=== PATIENT | male | born 1970 | race Caucasian/White ===

== ENCOUNTER 2017-08-12 10:21 | Emergency (ER) | payer BC ==
[~2017-08-12] VITALS: Ht 180.3 cm; Wt 103.0 kg
[~2017-08-12 10:21] MED LIST: AMOXICILLIN/CL875 MG PO; BACTRIM DS1 TAB PO; CIPRODEX1 ML AU; CIPROFLOXACN500 MG PO; FLEXERIL PO; METRONIDAZOL500 MG PO; NAPROSYN500 MG PO; NO MEDS; NYSTATIN100000 M1 PO; PRILOSEC40 MG PO; ZOFRAN4 MG/TAB PO; [UNRECOGNIZED DRUG - CODE] TOP
[2017-08-12 11:21] LABS: HEMATOCRIT 44.4 % (39.0-50.0); HEMOGLOBIN 14.9 g/dl (14.0-18.0); IMMATURE GRANULOCYTES 0.3 % (0.0-1.0); MEAN CELL VOLUME 87.2 fL CALC (80.0-100.0); MEAN CORPUSCULAR HGB 29.3 pG CALC (26.0-32.0); MEAN CORPUSCULAR HGB CONC 33.6 g/L CALC (32.0-36.0); NEUT# 3.42 thou/uL (1.82-7.42); RED BLOOD COUNT 5.09 mill/uL (4.70-6.10); RED CELL DISTRI WIDTH 12.9 % (11.5-15.5)
[2017-08-12 11:34] LABS: ALBUMIN 4.9 g/dL (3.2-5.0); ALKALINE PHOSPHATASE 68 u/l (38-126); ANION GAP 17 (6-22 (CALC)); BILIRUBIN, TOTAL 0.7 mg/dL (0.0-1.4); BUN 10 mg/dL (9-20); BUN/CREATININE RATIO 10 (12-20 (CALC)); CALCIUM 9.9 mg/dL (8.4-10.2); CARBON DIOXIDE 27 mmol/l (22-30); CHLORIDE 105 mmol/l (95-108); GFR > 60 ML/MIN (>=60 (CALC)); GFR FOR AFR.AMER. > 60 ML/MIN (>=60 (CALC)); GLUCOSE 129 mg/dL (75-110); POTASSIUM 4.5 mmol/l (3.5-5.1); SGOT/AST 37 u/l (17-59); SGPT/ALT 65 u/l (21-72); SODIUM 144 mmol/l (137-146)
[2017-08-12 11:47] LABS: MYOGLOBIN 44 ng/mL (0 - 121)
[2017-08-12 11:56] LABS: URINE BILIRUBIN - DIPSTICK NEGATIVE (NEGATIVE); URINE BLOOD DIPSTICK NEGATIVE (NEGATIVE); URINE COLOR YELLOW; URINE GLUCOSE - DIPSTICK NEGATIVE (NEGATIVE); URINE KETONE NEGATIVE (NEGATIVE); URINE LEUK ESTERASE NEGATIVE (NEGATIVE); URINE NITRITE - DIPSTICK NEGATIVE (Negative); URINE PH 6.5 (4.5-8.0); URINE PROTEIN - DIPSTICK NEGATIVE (NEG-TRACE); URINE UROBILINOGEN - DIPSTICK 0.2 E.U./dL (0.2)
[2017-08-12 12:02] LABS: BARBITURATES NEGATIVE (NEGATIVE); COCAINE NEGATIVE (NEGATIVE); METHADONE NEGATIVE (NEGATIVE); OXCYCODONE NEGATIVE (NEGATIVE); TETRAHYDROCANNABIONOL NEGATIVE (NEGATIVE); TRICYLIC ANTIDEPRESSANTS NEGATIVE (NEGATIVE)
[2017-08-12 12:05] LABS: URINE CLARITY CLEAR
[2017-08-12] MEDS ORDERED: ANTIVERT PO (12:23)
[2017-08-12 13:30] VITALS: BP 128/81
== END 2017-08-12 13:45 | disposition home or self-care (01) | DRG 149 ==
LOC: ED 10:21
PROVIDERS: Emergency Medicine
DX: R42 Dizziness and giddiness (principal); I10 Essential (primary) hypertension; R53.1 Weakness

== ENCOUNTER 2018-03-27 09:31 | Emergency (ER) | payer BC ==
[~2018-03-27] VITALS: Ht 180.3 cm; Wt 108.2 kg
[~2018-03-27 09:31] MED LIST changes: +ANTIVERT PO
[2018-03-27 11:04] LABS: HEMATOCRIT 44.1 % (39.0-50.0); HEMOGLOBIN 14.8 g/dl (14.0-18.0); IMMATURE GRANULOCYTES 0.3 % (0.0-1.0); MEAN CELL VOLUME 86.8 fL CALC (80.0-100.0); MEAN CORPUSCULAR HGB 29.1 pG CALC (26.0-32.0); MEAN CORPUSCULAR HGB CONC 33.6 g/L CALC (32.0-36.0); NEUT# 4.33 thou/uL (1.82-7.42); RED BLOOD COUNT 5.08 mill/uL (4.70-6.10); RED CELL DISTRI WIDTH 12.9 % (11.5-15.5)
[2018-03-27 11:05] LABS: URINE BILIRUBIN - DIPSTICK NEGATIVE (NEGATIVE); URINE BLOOD DIPSTICK NEGATIVE (NEGATIVE); URINE COLOR YELLOW; URINE GLUCOSE - DIPSTICK NEGATIVE (NEGATIVE); URINE KETONE NEGATIVE (NEGATIVE); URINE LEUK ESTERASE NEGATIVE (NEGATIVE); URINE NITRITE - DIPSTICK NEGATIVE (Negative); URINE PH 7.5 (4.5-8.0); URINE PROTEIN - DIPSTICK NEGATIVE (NEG-TRACE); URINE UROBILINOGEN - DIPSTICK 0.2 E.U./dL (0.2)
[2018-03-27 11:07] LABS: URINE CLARITY CLEAR
[2018-03-27 11:20] LABS: ALBUMIN 4.6 g/dL (3.2-5.0); ALKALINE PHOSPHATASE 77 u/l (38-126); ANION GAP 13 (6-22 (CALC)); BILIRUBIN, TOTAL 0.4 mg/dL (0.0-1.4); BUN 12 mg/dL (9-20); BUN/CREATININE RATIO 15 (12-20 (CALC)); CARBON DIOXIDE 27 mmol/l (22-30); CHLORIDE 106 mmol/l (95-108); CREATININE 0.8 mg/dL (0.7-1.3); GFR > 60 ML/MIN (>=60 (CALC)); GFR FOR AFR.AMER. > 60 ML/MIN (>=60 (CALC)); POTASSIUM 4.2 mmol/l (3.5-5.1); SGOT/AST 44 u/l (17-59); SGPT/ALT 74 u/l (21-72); SODIUM 141 mmol/l (137-146); TOTAL PROTEIN 8.2 g/dL (6.3-8.2)
[2018-03-27 11:30] LABS: MYOGLOBIN 37 ng/mL (0 - 121)
[2018-03-27] MEDS ORDERED: WELLBUTRIN100 M2 PO (12:11)
[2018-03-27 12:13] VITALS: BP 129/84
== END 2018-03-27 12:22 | disposition home or self-care (01) | DRG 880 ==
LOC: ED 09:31
PROVIDERS: Emergency Medicine
DX: F41.9 Anxiety disorder, unspecified (principal); F17.290 Nicotine dependence, other tobacco product, uncomplicated

== ENCOUNTER 2018-08-27 19:32 | Emergency (ER) | payer BC ==
[~2018-08-27] VITALS: Ht 180.3 cm; Wt 106.0 kg
[~2018-08-27 19:32] MED LIST changes: +WELLBUTRIN100 M2 PO
[2018-08-27 20:01] VITALS: BP 195/118
[2018-08-27 20:18] LABS: HEMATOCRIT 45.2 % (39.0-50.0); HEMOGLOBIN 15.3 g/dl (14.0-18.0); IMMATURE GRANULOCYTES 0.1 % (0.0-5.0); MEAN CELL VOLUME 86.9 fL CALC (80.0-100.0); MEAN CORPUSCULAR HGB 29.4 pG CALC (26.0-32.0); MEAN CORPUSCULAR HGB CONC 33.8 g/L CALC (32.0-36.0); NEUT# 4.09 thou/uL (1.82-7.42); RED BLOOD COUNT 5.2 mill/uL (4.70-6.10); RED CELL DISTRI WIDTH 12.6 % (11.5-15.5)
[2018-08-27 20:36] LABS: ALBUMIN 4.4 g/dL (3.2-5.0); ALKALINE PHOSPHATASE 108 u/l (38-126); AMYLASE 44 u/l (30-110); ANION GAP 12 (6-22 (CALC)); BILIRUBIN, TOTAL 0.5 mg/dL (0.0-1.4); BUN 12 mg/dL (9-20); BUN/CREATININE RATIO 16 (12-20 (CALC)); CARBON DIOXIDE 25 mmol/l (22-30); CHLORIDE 107 mmol/l (95-108); CREATININE 0.8 mg/dL (0.7-1.3); GFR > 60 ML/MIN (>=60 (CALC)); GFR FOR AFR.AMER. > 60 ML/MIN (>=60 (CALC)); LIPASE 97 u/l (23-300); POTASSIUM 4.4 mmol/l (3.5-5.1); SGOT/AST 72 u/l (17-59); SODIUM 139 mmol/l (137-146); TOTAL PROTEIN 7.7 g/dL (6.3-8.2)
[2018-08-27 21:27] LABS: URINE BILIRUBIN - DIPSTICK NEGATIVE (NEGATIVE); URINE BLOOD DIPSTICK NEGATIVE (NEGATIVE); URINE CLARITY CLEAR; URINE COLOR YELLOW; URINE GLUCOSE - DIPSTICK >=1000 mg/dL (NEGATIVE); URINE KETONE TRACE mg/dL (NEGATIVE); URINE LEUK ESTERASE NEGATIVE (NEGATIVE); URINE NITRITE - DIPSTICK NEGATIVE (Negative); URINE PROTEIN - DIPSTICK NEGATIVE (NEG-TRACE); URINE UROBILINOGEN - DIPSTICK 0.2 E.U./dL (0.2)
[2018-08-27] MEDS ORDERED: MAGNESIUM296 ML/BTL PO (21:38)
[2018-08-27] MEDS ORDERED: METFORMIN HCL1000 M1 PO (21:38)
[2018-08-27] MEDS ORDERED: TRAMADOL HCL50 MG PO (21:38)
== END 2018-08-27 21:57 | disposition home or self-care (01) | DRG 392 ==
LOC: ED 19:32
PROVIDERS: Family Medicine
DX: R10.33 Periumbilical pain (principal); E11.9 Type 2 diabetes mellitus without complications; F17.290 Nicotine dependence, other tobacco product, uncomplicated

== ENCOUNTER 2018-10-30 19:18 | Emergency (ER) | payer BC ==
[~2018-10-30] VITALS: Ht 180.3 cm; Wt 106.6 kg
[~2018-10-30 19:18] MED LIST changes: +MAGNESIUM296 ML/BTL PO; +METFORMIN HCL1000 M1 PO; +TRAMADOL HCL50 MG PO
[2018-10-30 20:00] LABS: HEMATOCRIT 43.4 % (39.0-50.0); IMMATURE GRANULOCYTES 0.1 % (0.0-5.0); MEAN CELL VOLUME 86.1 fL CALC (80.0-100.0); MEAN CORPUSCULAR HGB 29.8 pG CALC (26.0-32.0); MEAN CORPUSCULAR HGB CONC 34.6 g/L CALC (32.0-36.0); NEUT# 3.71 thou/uL (1.82-7.42); RED BLOOD COUNT 5.04 mill/uL (4.70-6.10); RED CELL DISTRI WIDTH 12.5 % (11.5-15.5)
[2018-10-30 20:22] LABS: ALBUMIN 4.8 g/dL (3.2-5.0); ALKALINE PHOSPHATASE 94 u/l (38-126); ANION GAP 17 (6-22 (CALC)); BILIRUBIN, TOTAL 0.5 mg/dL (0.0-1.4); BUN 16 mg/dL (9-20); BUN/CREATININE RATIO 18 (12-20 (CALC)); CARBON DIOXIDE 24 mmol/l (22-30); CHLORIDE 104 mmol/l (95-108); CREATININE 0.9 mg/dL (0.7-1.3); GFR > 60 ML/MIN (>=60 (CALC)); GFR FOR AFR.AMER. > 60 ML/MIN (>=60 (CALC)); POTASSIUM 3.9 mmol/l (3.5-5.1); SGOT/AST 59 u/l (17-59); SODIUM 141 mmol/l (137-146); TOTAL PROTEIN 7.8 g/dL (6.3-8.2)
[2018-10-30] MEDS ORDERED: SIMVASTATIN5 MG PO (20:35)
[2018-10-30] MEDS ORDERED: LISINOPRIL2.5 MG PO (20:36)
[2018-10-30 20:59] VITALS: BP 167/105
== END 2018-10-30 21:10 | disposition home or self-care (01) | DRG 305 ==
LOC: ED 19:18
DX: I10 Essential (primary) hypertension (principal); T50.905A Adverse effect of unspecified drugs, medicaments and biological substances, initial encounter; E11.9 Type 2 diabetes mellitus without complications; E78.00 Pure hypercholesterolemia, unspecified; F17.200 Nicotine dependence, unspecified, uncomplicated

== ENCOUNTER → 2018-11-19 | Outpatient (REF) ==
[~2018-11-19] MED LIST changes: +ASPIRIN81 MG PO; +LISINOPRIL2.5 MG PO; +SIMVASTATIN5 MG PO
== END | disposition home or self-care (01) | DRG 392 ==
LOC: LAB 10:22
PROVIDERS: ATTEND Internal Medicine Gastroenterology
DX: R10.12 Left upper quadrant pain (principal); K21.9 Gastro-esophageal reflux disease without esophagitis; K59.00 Constipation, unspecified

== ENCOUNTER → 2018-11-26 | Outpatient (REF) | payer BC ==
[~2018-11-26] VITALS: Ht 180.3 cm; Wt 102.5 kg
[2018-11-26 10:33] VITALS: BP 112/76
== END | disposition home or self-care (01) | DRG 951 ==
LOC: PO 10:16 → ORM 10:30
PROVIDERS: ATTEND Internal Medicine Gastroenterology
DX: Z01.818 Encounter for other preprocedural examination (principal); R10.32 Left lower quadrant pain; K59.00 Constipation, unspecified; K21.9 Gastro-esophageal reflux disease without esophagitis; I10 Essential (primary) hypertension; E11.9 Type 2 diabetes mellitus without complications; G47.30 Sleep apnea, unspecified; Z98.890 Other specified postprocedural states

== ENCOUNTER 2018-11-27 08:40 | Day surgery (SDC) | payer BC ==
[~2018-11-27] VITALS: Ht 180.3 cm; Wt 102.5 kg
[2018-11-27 11:56] VITALS: BP 124/89
== END 2018-11-27 12:10 | disposition home or self-care (01) | DRG 392 ==
LOC: ENDO 08:40 → ORM 14:00 → ENDO 17:15 → ORM 17:15
PROVIDERS: ATTEND Internal Medicine Gastroenterology
PROC: 0DBN8ZX Excision of Sigmoid Colon, Via Natural or Artificial Opening Endoscopic, Diagnostic (ICD-10-PCS; principal; 2018-11-27)
PROC: 0DB48ZX Excision of Esophagogastric Junction, Via Natural or Artificial Opening Endoscopic, Diagnostic (ICD-10-PCS; 2018-11-27)
DX: K59.00 Constipation, unspecified (principal); K63.5 Polyp of colon; K64.4 Residual hemorrhoidal skin tags; K21.0 Gastro-esophageal reflux disease with esophagitis; K22.70 Barrett's esophagus without dysplasia; K29.70 Gastritis, unspecified, without bleeding; K22.2 Esophageal obstruction; Q40.8 Other specified congenital malformations of upper alimentary tract; K44.9 Diaphragmatic hernia without obstruction or gangrene; I10 Essential (primary) hypertension; E11.9 Type 2 diabetes mellitus without complications; G47.30 Sleep apnea, unspecified; Z79.899 Other long term (current) drug therapy

== ENCOUNTER 2018-12-16 16:00 | Outpatient (RCR) | payer BC | END 2018-12-16 17:00 | disposition home or self-care (01) | DRG 552 | LOC: PT 16:00 | PROVIDERS: ATTEND Physician Assistant Medical | DX: M54.5 Low back pain (principal) ==

== ENCOUNTER 2020-04-01 00:58 | Emergency (ER) | payer BC ==
[~2020-04-01] VITALS: Ht 180.3 cm; Wt 106.0 kg
[2020-04-01 05:15] VITALS: BP 121/73
--- NOTE | 2020-04-04 10:56 | NUR ---
Notified patient of +Covid results. Patient denies fever or dyspnea. Advised patient to quarantine until contacted by [facility] with further instructions. Advised patient to drink plenty of fluids and to rest. Advised patient to return to ED with difficulty breathing or other urgent needs. Patient verbalized understanding.
== END 2020-04-01 05:28 | disposition home or self-care (01) | DRG 179 ==
LOC: ED 00:58
DX: U07.1 COVID-19 (principal); J11.1 Influenza due to unidentified influenza virus with other respiratory manifestations; E11.9 Type 2 diabetes mellitus without complications; I10 Essential (primary) hypertension; Z79.84 Long term (current) use of oral hypoglycemic drugs

== ENCOUNTER 2020-10-04 06:50 | Observation (INO) | payer BC ==
[~2020-10-04] VITALS: Ht 180.3 cm; Wt 104.0 kg
--- NOTE | 2020-10-04 06:52 | NUR ---
PATIENT AMBULATED TO ROOM REFUSING A WHEELCHAIR AND PHYSICIAN NOTIFIED OF PATIENT STATUS
[2020-10-04 07:26] LABS: HEMATOCRIT 46.9 % (39.0-50.0); HEMOGLOBIN 15.1 g/dl (14.0-18.0); IMMATURE GRANULOCYTES 0.2 % (0.0-5.0); MEAN CELL VOLUME 88.7 fL CALC (80.0-100.0); MEAN CORPUSCULAR HGB 28.5 pG CALC (26.0-32.0); MEAN CORPUSCULAR HGB CONC 32.2 g/dL CAL (32.0-36.0); NEUT# 2.97 thou/uL (1.82-7.42); RED BLOOD COUNT 5.29 mill/uL (4.70-6.10); RED CELL DISTRI WIDTH 12.9 % (11.5-15.5)
[2020-10-04 07:32] LABS: ANION GAP 14 (6-22 (CALC)); BUN 14 mg/dL (9-20); BUN/CREATININE RATIO 15 (12-20 (CALC)); CARBON DIOXIDE 25 mmol/l (22-30); CHLORIDE 105 mmol/l (95-108); CREATININE 0.9 mg/dL (0.7-1.3); GFR > 60 ML/MIN (>=60 (CALC)); GFR FOR AFR.AMER. > 60 ML/MIN (>=60 (CALC)); POTASSIUM 4.2 mmol/l (3.5-5.1); SODIUM 140 mmol/l (137-146)
--- NOTE | 2020-10-04 08:03 | NUR ---
PT RESTING COMFORTABLY IN BED. STABLE ON MONITOR. CALL LIGHT WITHIN REACH. NO NEEDS OR CONCERNS AT THIS TIME.
--- NOTE | 2020-10-04 09:11 | NUR ---
AT BEDSIDE. NO DISTRESS NOTED OR PAIN VOICED BY PT. WILL CONTINUE TO MONITOR.
[2020-10-04] MEDS ORDERED: LIPITOR20 M1 PO (09:19)
[2020-10-04] MEDS ORDERED: LEVOCETIRIZINE D5 MG PO (09:20)
[2020-10-04] MEDS ORDERED: LOSARTAN POTASS25 MG PO (09:20)
--- NOTE | 2020-10-04 09:40 | NUR ---
PT UP, AMBULATING TO BATHROOM WITHOUT DIFFICULTY.
--- NOTE | 2020-10-04 09:43 | NUR ---
REPORT GIVEN TO LUX OLIVARES. PT ADMITTED TO M/S [id number].
--- NOTE | 2020-10-04 09:55 | NUR ---
PT ARRIVED VIA WC WITH STAFF. TELE MONITOR AND IV SITE IN PLACE.
[2020-10-04 10:10] VITALS: BP 120/86
--- NOTE | 2020-10-04 10:45 | NUR ---
PT ASSESSMENT IS COMPLETED: IV SITE IS FREE FROM REDNESS OR EDEMA, HR IS REG,PULSES ARE STRONG X4, ABD IS SOFT WITH ACTIVE BS. BREATH SOUNDS ARE CLEAR, BILATERALLY, PT HAS SLEEP APNEA. INQUIRED IF HIS SPOUSE WOULD BRING THE MACHINE. HE WILL ASK. TELE MONITOR IN PLACE. CONTINUE TO OBSERVE AND MONITOR.
[2020-10-04 15:56] VITALS: BP 113/67
--- NOTE | 2020-10-04 16:00 | NUR ---
PT HAS BEEN RELAXING IN BED WITH NO DISTRESS NOTED. IV SITE AND TELE MONITOR IN PLACE. FAMILY SENT THE PHONE WITH [employer]
[2020-10-04 19:00] VITALS: BP 94/65
--- NOTE | 2020-10-04 20:01 | NUR ---
PHYSICAL ASSESMENT COMPLETE. PT CURRENTLY DENIES PAIN OR DISCOMFORT. SCHEDULED MEDICATIONS AND PRN MEDICATION ADMINISTERED, SEE E-MAR. PT DENIES ANY NEEDS AT THIS TIME. PLAN OF CARE REVIEWED, PT DENIES QUESTIONS, VERBALIZES UNDERSTANDING. ITEMS WITHIN REACH, BED LOCKED IN LOW POSITION W/ BEDRAILS UP X2. CALL BHAT WITHIN REACH, AGREES TO CALL PRN.
[2020-10-05] VITALS: BP 97/70
--- NOTE | 2020-10-05 00:03 | NUR ---
PT LAYING IN BED WITH EYES CLOSED, APPEARS TO BE SLEEPING, APPEARS COMFORTABLE AND IN NO DISTRESS. RESPIRATIONS REGULAR AND UNLABORED. ITEMS REMAIN WITHIN REACH, CALL BHAT REMAINS WITHIN REACH. BED REMAINS LOCKED AND IN LOW POSITION WITH BEDRAILS UP X2. WILL CONTINUE TO MONITOR.
--- NOTE | 2020-10-05 01:25 | NUR ---
PT RECEIVED FROM ED TO ROOM 283. ARRIVES VIA STRETCHER ACCOMPANIED BY JASMIN PANTOJA. PT AMBULATORY TO BED. GAIT STEADY AND BALANCED. PT DENIES PAIN AT THIS TIME. ORIENTED TO UNIT, ROOM, CALL BHAT, LIGHTS, TV. ICE WATER PROVIDED. CALL BHAT WITHIN REACH. WILL CALL PRN.
--- NOTE | 2020-10-05 03:59 | NUR ---
PT RESTING IN BED, NO SIGNS OF DISTRESS NOTED, RESP EVEN AND UNLABORED. PT VOICES NO NEEDS OR COMPLAINTS AT THIS TIME. CALL LIGHT IN REACH, CONTINUE TO MONITOR.
[2020-10-05 04:00] VITALS: BP 104/67
[2020-10-05 05:44] LABS: HEMATOCRIT 46.4 % (39.0-50.0); IMMATURE GRANULOCYTES 0.1 % (0.0-5.0); MEAN CELL VOLUME 89.1 fL CALC (80.0-100.0); MEAN CORPUSCULAR HGB 28.8 pG CALC (26.0-32.0); MEAN CORPUSCULAR HGB CONC 32.3 g/dL CAL (32.0-36.0); NEUT# 3.39 thou/uL (1.82-7.42); RED BLOOD COUNT 5.21 mill/uL (4.70-6.10)
[2020-10-05 06:01] LABS: ALBUMIN 4.2 g/dL (3.2-5.0); ALKALINE PHOSPHATASE 85 u/l (38-126); ANION GAP 13 (6-22 (CALC)); BILIRUBIN, TOTAL 0.5 mg/dL (0.0-1.4); BUN 16 mg/dL (9-20); BUN/CREATININE RATIO 17 (12-20 (CALC)); CALCULATED LDLCHOLESTEROL 61 mg/dL (62-129 (CALC)); CARBON DIOXIDE 24 mmol/l (22-30); CHLORIDE 107 mmol/l (95-108); CHOLESTEROL HDL RATIO 4.9 (<4.4 (CALC)); GFR > 60 ML/MIN (>=60 (CALC)); GFR FOR AFR.AMER. > 60 ML/MIN (>=60 (CALC)); HDL CHOLESTEROL 32 mg/dL (>=40); POTASSIUM 4.3 mmol/l (3.5-5.1); SGOT/AST 40 u/l (17-59); SODIUM 139 mmol/l (137-146); TOTAL CHOLESTEROL 156 mg/dl (0-199); TOTAL PROTEIN 7.1 g/dL (6.3-8.2); TOTAL TRIGLYCERIDES 315 mg/dl (30-149); VLDL CHOLESTROL 63 mg/dl (8-62 (CALC))
[2020-10-05 07:28] VITALS: BP 104/70
--- NOTE | 2020-10-05 07:28 | NUR ---
PT RESTING IN BED, NO SIGNS OF DISTRESS NOTED, RESP EVEN AND UNLABORED. PT ALERT AND ORIENTED X3, DENIES ANY PAIN AT THIS TIME. ASSESSMENT COMPLETED, MEDICATED PER MAR. CALL LIGHT IN REACH,CONTINU TO MONITOR.
[2020-10-05 07:33] VITALS: BP 104/70
--- NOTE | 2020-10-05 09:55 | NUR ---
PT SHOWERED, RAZOR AND SHAVING CREAM PROVIDED, PT VOICES NO NEEDS OR COMPLAINTS AT THIS TIME, CALL LIGHT IN REACH,CONTINUE TO MONITOR.
--- NOTE | 2020-10-05 11:10 | NUR ---
DISCUSSED DISCHARGE INSTRUCTIONS, IV REMOVED, CATH INTACT. PT GETTING DRESSED AWAITING HIS .CALL LIGHT IN REACH,CONTINUE TO MONITOR.
--- NOTE | 2020-10-05 11:41 | NUR ---
Discharge instructions given. Patient verbalizes understanding of same. Discharged in stable condition via Ambulatory to Home with family. All belongings sent with pt.
== END 2020-10-05 11:40 | disposition home or self-care (01) | DRG 313 ==
LOC: ED 06:50 → ED-I 07:16 → ED 07:16 → ED-I 08:00 → ED 08:13 → MS2 08:14
PROVIDERS: Family Medicine; Nurse Practitioner; ADMIT Internal Medicine; ATTEND Internal Medicine
DX: R07.89 Other chest pain (principal); E11.9 Type 2 diabetes mellitus without complications; I10 Essential (primary) hypertension; E78.5 Hyperlipidemia, unspecified; E66.3 Overweight; F17.200 Nicotine dependence, unspecified, uncomplicated; Z68.31 Body mass index [BMI] 31.0-31.9, adult; Z79.84 Long term (current) use of oral hypoglycemic drugs; Z82.49 Family history of ischemic heart disease and other diseases of the circulatory system; Z20.828 Contact with and (suspected) exposure to other viral communicable diseases
CPT/HCPCS: G0378; J1650

== ENCOUNTER 2020-11-13 04:37 | Emergency (ER) | payer BC ==
[~2020-11-13] VITALS: Ht 180.3 cm; Wt 104.0 kg
[~2020-11-13 04:37] MED LIST changes: +LEVOCETIRIZINE D5 MG PO; +LIPITOR20 M1 PO; +LOSARTAN POTASS25 MG PO
[2020-11-13 05:22] LABS: URINE BILIRUBIN - DIPSTICK NEGATIVE (NEGATIVE); URINE BLOOD DIPSTICK TRACE-LYSED (NEGATIVE); URINE COLOR YELLOW; URINE GLUCOSE - DIPSTICK 250 mg/dL (NEGATIVE); URINE KETONE NEGATIVE (NEGATIVE); URINE LEUK ESTERASE NEGATIVE (NEGATIVE); URINE NITRITE - DIPSTICK NEGATIVE (Negative); URINE PH 5.5 (4.5-8.0); URINE PROTEIN - DIPSTICK NEGATIVE (NEG-TRACE); URINE SPECIFIC GRAVITY >=1.030; URINE UROBILINOGEN - DIPSTICK 0.2 E.U./dL (0.2)
[2020-11-13 05:29] LABS: HEMATOCRIT 47.9 % (39.0-50.0); HEMOGLOBIN 15.4 g/dl (14.0-18.0); IMMATURE GRANULOCYTES 0.1 % (0.0-5.0); MEAN CELL VOLUME 88.2 fL CALC (80.0-100.0); MEAN CORPUSCULAR HGB 28.4 pG CALC (26.0-32.0); MEAN CORPUSCULAR HGB CONC 32.2 g/dL CAL (32.0-36.0); NEUT# 3.61 thou/uL (1.82-7.42); RED BLOOD COUNT 5.43 mill/uL (4.70-6.10)
[2020-11-13 05:37] LABS: ALBUMIN 4.6 g/dL (3.2-5.0); ALKALINE PHOSPHATASE 85 u/l (38-126); ANION GAP 13 (6-22 (CALC)); BILIRUBIN, TOTAL 0.6 mg/dL (0.0-1.4); BUN 17 mg/dL (9-20); BUN/CREATININE RATIO 19 (12-20 (CALC)); CARBON DIOXIDE 26 mmol/l (22-30); CHLORIDE 103 mmol/l (95-108); CREATININE 0.9 mg/dL (0.7-1.3); GFR > 60 ML/MIN (>=60 (CALC)); GFR FOR AFR.AMER. > 60 ML/MIN (>=60 (CALC)); LIPASE 188 u/l (23-300); POTASSIUM 4.2 mmol/l (3.5-5.1); SGOT/AST 39 u/l (17-59); SODIUM 138 mmol/l (137-146); TOTAL PROTEIN 7.8 g/dL (6.3-8.2)
[2020-11-13] MEDS ORDERED: METFORMIN HCL500 M2 PO (06:01)
[2020-11-13] MEDS ORDERED: TRAMADOL HYDROC50 M1 PR (08:19)
[2020-11-13 09:20] VITALS: BP 114/78
== END 2020-11-13 09:20 | disposition home or self-care (01) | DRG 392 ==
LOC: ED 04:37
PROVIDERS: Emergency Medicine
DX: R10.11 Right upper quadrant pain (principal); E11.9 Type 2 diabetes mellitus without complications; I10 Essential (primary) hypertension; E78.00 Pure hypercholesterolemia, unspecified; F17.200 Nicotine dependence, unspecified, uncomplicated; Z86.16 Personal history of COVID-19; Z79.84 Long term (current) use of oral hypoglycemic drugs; Z20.822 Contact with and (suspected) exposure to COVID-19
CPT/HCPCS: Q9967; S0164

== ENCOUNTER 2021-04-01 11:32 | Emergency (ER) | payer BC ==
[~2021-04-01] VITALS: Ht 180.3 cm; Wt 106.8 kg
[~2021-04-01 11:32] MED LIST changes: +METFORMIN HCL500 M2 PO; +TRAMADOL HYDROC50 M1 PR
[2021-04-01 12:41] LABS: HEMATOCRIT 47.6 % (39.0-50.0); HEMOGLOBIN 15.7 g/dl (14.0-18.0); IMMATURE GRANULOCYTES 0.1 % (0.0-5.0); MEAN CELL VOLUME 86.2 fL CALC (80.0-100.0); MEAN CORPUSCULAR HGB 28.4 pG CALC (26.0-32.0); NEUT# 5.37 thou/uL (1.82-7.42); RED BLOOD COUNT 5.52 mill/uL (4.70-6.10)
[2021-04-01 12:54] LABS: ALBUMIN 4.5 g/dL (3.2-5.0); ALKALINE PHOSPHATASE 88 u/l (38-126); ANION GAP 15 (6-22 (CALC)); BILIRUBIN, TOTAL 0.6 mg/dL (0.0-1.4); BUN 13 mg/dL (9-20); BUN/CREATININE RATIO 18 (12-20 (CALC)); CARBON DIOXIDE 24 mmol/l (22-30); CHLORIDE 104 mmol/l (95-108); CREATININE 0.7 mg/dL (0.7-1.3); GFR > 60 ML/MIN (>=60 (CALC)); GFR FOR AFR.AMER. > 60 ML/MIN (>=60 (CALC)); LIPASE 145 u/l (23-300); POTASSIUM 3.9 mmol/l (3.5-5.1); SGOT/AST 49 u/l (17-59); SODIUM 140 mmol/l (137-146); TOTAL PROTEIN 8.5 g/dL (6.3-8.2)
[2021-04-01 13:11] LABS: URINE BILIRUBIN - DIPSTICK NEGATIVE (NEGATIVE); URINE BLOOD DIPSTICK NEGATIVE (NEGATIVE); URINE COLOR YELLOW; URINE GLUCOSE - DIPSTICK >=1000 mg/dL (NEGATIVE); URINE KETONE TRACE mg/dL (NEGATIVE); URINE LEUK ESTERASE NEGATIVE (NEGATIVE); URINE PROTEIN - DIPSTICK NEGATIVE (NEG-TRACE); URINE SPECIFIC GRAVITY 1.025; URINE UROBILINOGEN - DIPSTICK 0.2 E.U./dL (0.2)
[2021-04-01 13:13] LABS: URINE NITRITE - DIPSTICK NEGATIVE (Negative)
[2021-04-01] MEDS ORDERED: HYDROCO/APAP1 TA9 PO (14:21)
[2021-04-01 14:50] VITALS: BP 120/70
== END 2021-04-01 15:00 | disposition home or self-care (01) | DRG 563 ==
LOC: ED 11:32
DX: S39.011A Strain of muscle, fascia and tendon of abdomen, initial encounter (principal); M25.562 Pain in left knee; E11.9 Type 2 diabetes mellitus without complications; I10 Essential (primary) hypertension; E78.00 Pure hypercholesterolemia, unspecified; F17.200 Nicotine dependence, unspecified, uncomplicated; Z86.16 Personal history of COVID-19; Z79.84 Long term (current) use of oral hypoglycemic drugs; X58.XXXA Exposure to other specified factors, initial encounter
CPT/HCPCS: Q9967

== ENCOUNTER 2021-09-22 06:36 | Observation (INO) | payer BC ==
[~2021-09-22] VITALS: Ht 180.3 cm; Wt 104.2 kg
[~2021-09-22 06:36] MED LIST changes: +HYDROCO/APAP1 TA9 PO; -METFORMIN HCL500 M2 PO
[2021-09-22 07:29] LABS: GFR > 60 ML/MIN (>=60 (CALC)); GFR FOR AFR.AMER. > 60 ML/MIN (>=60 (CALC))
[2021-09-22 07:32] LABS: HEMATOCRIT 45.7 % (39.0-50.0); HEMOGLOBIN 14.8 g/dl (14.0-18.0); MEAN CELL VOLUME 88.4 fL CALC (80.0-100.0); MEAN CORPUSCULAR HGB 28.6 pG CALC (26.0-32.0); MEAN CORPUSCULAR HGB CONC 32.4 g/dL CAL (32.0-36.0); NEUT# 3.81 thou/uL (1.82-7.42); RED BLOOD COUNT 5.17 mill/uL (4.70-6.10); RED CELL DISTRI WIDTH 12.9 % (11.5-15.5)
[2021-09-22 07:48] LABS: ALBUMIN 4.3 g/dL (3.2-5.0); ALKALINE PHOSPHATASE 100 u/l (38-126); ANION GAP 14 (6-22 (CALC)); BILIRUBIN, TOTAL 0.7 mg/dL (0.0-1.4); BUN 13 mg/dL (9-20); BUN/CREATININE RATIO 17 (12-20 (CALC)); CARBON DIOXIDE 25 mmol/l (22-30); CHLORIDE 105 mmol/l (95-108); CREATININE 0.8 mg/dL (0.7-1.3); GFR > 60 ML/MIN (>=60 (CALC)); GFR FOR AFR.AMER. > 60 ML/MIN (>=60 (CALC)); POTASSIUM 4.1 mmol/l (3.5-5.1); SGOT/AST 48 u/l (17-59); SODIUM 140 mmol/l (137-146); TOTAL PROTEIN 7.8 g/dL (6.3-8.2)
[2021-09-22 07:51] LABS: ACT PARTIAL THROMBO TIME 24.1 SECONDS (20.0-32.5); PROTHROMBIN TIME 10.4 SECONDS (9.0-12.5)
[2021-09-22] MEDS ORDERED: SIMVASTATIN5 MG PO (08:06)
[2021-09-22] MEDS ORDERED: INVOKANA300 MG PO (08:09)
[2021-09-22] MEDS ORDERED: PRILOSEC20 MG/CAP PO (09:24)
[2021-09-22] MEDS ORDERED: LOSARTAN POTASS25 MG PO (09:26)
[2021-09-22] MEDS ORDERED: LIPITOR20 M1 PO (09:26)
[2021-09-22 14:11] VITALS: BP 108/72
[2021-09-22 17:24] VITALS: BP 145/63
== END 2021-09-22 15:41 | disposition home or self-care (01) | DRG 149 ==
LOC: ED 06:36 → ED-I 08:40 → ED 08:58 → MS2 08:59
PROVIDERS: Family Medicine; ADMIT Internal Medicine; ATTEND Internal Medicine
DX: R42 Dizziness and giddiness (principal); R55 Syncope and collapse; I10 Essential (primary) hypertension; E11.9 Type 2 diabetes mellitus without complications; E78.5 Hyperlipidemia, unspecified; F17.290 Nicotine dependence, other tobacco product, uncomplicated; Z86.16 Personal history of COVID-19; Z79.84 Long term (current) use of oral hypoglycemic drugs; Z79.82 Long term (current) use of aspirin; Z20.822 Contact with and (suspected) exposure to COVID-19
CPT/HCPCS: G0378; Q9967

== ENCOUNTER 2021-11-20 08:16 | Emergency (ER) | payer BC ==
[~2021-11-20] VITALS: Ht 180.3 cm; Wt 106.0 kg
[2021-11-20] VITALS (9 sets, daily range): BP systolic 107–125; BP diastolic 73–89
[~2021-11-20 08:16] MED LIST changes: +INVOKANA300 MG PO; +PRILOSEC20 MG/CAP PO
[2021-11-20 09:25] LABS: HEMATOCRIT 45.7 % (39.0-50.0); HEMOGLOBIN 15.1 g/dl (14.0-18.0); IMMATURE GRANULOCYTES 0.2 % (0.0-5.0); MEAN CELL VOLUME 86.7 fL CALC (80.0-100.0); MEAN CORPUSCULAR HGB 28.7 pG CALC (26.0-32.0); NEUT# 4.04 thou/uL (1.82-7.42); RED BLOOD COUNT 5.27 mill/uL (4.70-6.10); RED CELL DISTRI WIDTH 13.3 % (11.5-15.5)
[2021-11-20 09:40] LABS: ALBUMIN 4.1 g/dL (3.2-5.0); ALKALINE PHOSPHATASE 108 u/l (38-126); AMYLASE 47 u/l (30-110); ANION GAP 17 (6-22 (CALC)); BILIRUBIN, TOTAL 0.5 mg/dL (0.0-1.4); BUN 13 mg/dL (9-20); BUN/CREATININE RATIO 16 (12-20 (CALC)); CARBON DIOXIDE 23 mmol/l (22-30); CHLORIDE 105 mmol/l (95-108); CREATININE 0.8 mg/dL (0.7-1.3); GFR > 60 ML/MIN (>=60 (CALC)); GFR FOR AFR.AMER. > 60 ML/MIN (>=60 (CALC)); LIPASE 88 u/l (23-300); POTASSIUM 4.6 mmol/l (3.5-5.1); SGOT/AST 63 u/l (17-59); SODIUM 140 mmol/l (137-146); TOTAL PROTEIN 7.4 g/dL (6.3-8.2)
[2021-11-20 11:53] LABS: URINE BILIRUBIN - DIPSTICK NEGATIVE (NEGATIVE); URINE BLOOD DIPSTICK NEGATIVE (NEGATIVE); URINE COLOR YELLOW; URINE GLUCOSE - DIPSTICK >=1000 mg/dL (NEGATIVE); URINE KETONE NEGATIVE (NEGATIVE); URINE LEUK ESTERASE NEGATIVE (NEGATIVE); URINE PH 5.5 (4.5-8.0); URINE PROTEIN - DIPSTICK NEGATIVE (NEG-TRACE); URINE SPECIFIC GRAVITY 1.015; URINE UROBILINOGEN - DIPSTICK 0.2 E.U./dL (0.2)
[2021-11-20 11:55] LABS: URINE NITRITE - DIPSTICK NEGATIVE (Negative)
[2021-11-20] MEDS ORDERED: LOMOTIL2.5 MG PO (12:01)
[2021-11-20] MEDS ORDERED: ZITHROMAX250 MG PO (12:01)
== END 2021-11-20 14:00 | disposition home or self-care (01) | DRG 373 ==
LOC: ED 08:16
PROVIDERS: Emergency Medicine
DX: A04.5 Campylobacter enteritis (principal); E11.9 Type 2 diabetes mellitus without complications; E78.00 Pure hypercholesterolemia, unspecified; F17.290 Nicotine dependence, other tobacco product, uncomplicated; Z79.84 Long term (current) use of oral hypoglycemic drugs; Z86.16 Personal history of COVID-19; Z20.822 Contact with and (suspected) exposure to COVID-19
CPT/HCPCS: Q9967

== ENCOUNTER 2022-08-12 20:12 | Emergency (ER) | payer BC ==
[2022-08-12] VITALS (10 sets, daily range): BP systolic 115–134; BP diastolic 74–88
[~2022-08-12] VITALS: Ht 180.3 cm; Wt 110.0 kg
[~2022-08-12 20:12] MED LIST changes: +LOMOTIL2.5 MG PO; +ZITHROMAX250 MG PO
[2022-08-12 21:58] LABS: HEMATOCRIT 41.3 % (39.0-50.0); HEMOGLOBIN 13.7 g/dl (14.0-18.0); IMMATURE GRANULOCYTES 0.1 % (0.0-5.0); MEAN CELL VOLUME 88.4 fL CALC (80.0-100.0); MEAN CORPUSCULAR HGB 29.3 pG CALC (26.0-32.0); MEAN CORPUSCULAR HGB CONC 33.2 g/dL CAL (32.0-36.0); NEUT# 4.05 thou/uL (1.82-7.42); RED BLOOD COUNT 4.67 mill/uL (4.70-6.10); RED CELL DISTRI WIDTH 12.6 % (11.5-15.5)
[2022-08-12 22:13] LABS: ALBUMIN 4.4 g/dL (3.2-5.0); ALKALINE PHOSPHATASE 76 u/l (38-126); ANION GAP 14 (6-22 (CALC)); BILIRUBIN, TOTAL 0.7 mg/dL (0.0-1.4); BUN 13 mg/dL (9-20); BUN/CREATININE RATIO 16 (12-20 (CALC)); CARBON DIOXIDE 24 mmol/l (22-30); CHLORIDE 105 mmol/l (95-108); CREATININE 0.8 mg/dL (0.7-1.3); GFR FOR AFR.AMER. > 60 ML/MIN (>=60 (CALC)); GFR OTHER RACES > 60 ML/MIN (>=60 (CALC)); LIPASE 109 u/l (23-300); POTASSIUM 3.8 mmol/l (3.5-5.1); SGOT/AST 84 u/l (17-59); SODIUM 140 mmol/l (137-146); TOTAL PROTEIN 7.6 g/dL (6.3-8.2)
[2022-08-13] VITALS: BP 108/73
[2022-08-13 00:16] VITALS: BP 127/89
[2022-08-13 00:30] VITALS: BP 123/88
[2022-08-13 00:31] VITALS: BP 123/88
[2022-08-13 00:35] LABS: URINE BILIRUBIN - DIPSTICK NEGATIVE (NEGATIVE); URINE BLOOD DIPSTICK NEGATIVE (NEGATIVE); URINE COLOR YELLOW; URINE GLUCOSE - DIPSTICK NEGATIVE (NEGATIVE); URINE KETONE NEGATIVE (NEGATIVE); URINE LEUK ESTERASE NEGATIVE (NEGATIVE); URINE PROTEIN - DIPSTICK NEGATIVE (NEG-TRACE); URINE SPECIFIC GRAVITY 1.025; URINE UROBILINOGEN - DIPSTICK 0.2 E.U./dL (0.2)
[2022-08-13 00:39] LABS: URINE NITRITE - DIPSTICK NEGATIVE (Negative)
== END 2022-08-13 00:43 | disposition home or self-care (01) | DRG 392 ==
LOC: ED 20:12
PROVIDERS: Emergency Medicine
DX: R10.13 Epigastric pain (principal); K29.70 Gastritis, unspecified, without bleeding; K29.80 Duodenitis without bleeding; E11.9 Type 2 diabetes mellitus without complications; E78.00 Pure hypercholesterolemia, unspecified; F17.200 Nicotine dependence, unspecified, uncomplicated; Z86.16 Personal history of COVID-19; Z79.84 Long term (current) use of oral hypoglycemic drugs
CPT/HCPCS: S0164

== ENCOUNTER 2022-12-09 19:07 | Emergency (ER) | payer BC ==
[~2022-12-09] VITALS: Ht 180.3 cm; Wt 102.0 kg
[2022-12-09] MEDS ORDERED: GENTAMICIN SULF5 ML OS (21:40)
[2022-12-09 21:43] VITALS: BP 141/79
== END 2022-12-09 21:49 | disposition home or self-care (01) | DRG 125 ==
LOC: ED 19:07
DX: H10.9 Unspecified conjunctivitis (principal); E11.9 Type 2 diabetes mellitus without complications; Z79.84 Long term (current) use of oral hypoglycemic drugs; G47.30 Sleep apnea, unspecified; Z86.16 Personal history of COVID-19; F17.210 Nicotine dependence, cigarettes, uncomplicated